=== PATIENT | female | born 1985 | race Caucasian/White ===

== ENCOUNTER 2019-09-19 01:27 | Inpatient (IN) ==
[~2019-09-19] VITALS: Ht 162.6 cm; Wt 76.0 kg
[2019-09-19] VITALS (39 sets, daily range): BP systolic 95–134; BP diastolic 53–80
[2019-09-19] MEDS ORDERED: PRENTAB9 PO (01:39)
[2019-09-19] MEDS ORDERED: LEVO25TA5 PO (01:41)
[2019-09-19] MEDS ORDERED: LEVO200T4 PO (01:41)
[2019-09-19] MEDS ORDERED: CETI10CA2 PO (01:41)
[2019-09-19] MEDS ORDERED: LR 1,000 ML IV SCH (02:13)
[2019-09-19] MEDS ORDERED: LACTATED RINGER'S 1000 ML IV STA (02:13)
[2019-09-19 02:27] LABS: HEMATOCRIT 39.6 % (36.0-47.0); HEMOGLOBIN 13.6 g/dl (12.0-15.5); MEAN CORPUSCULAR HEMOGLOBIN 31.7 pg (27.0-33.0); MEAN CORPUSCULAR HGB CONC 34.3 g/dl (32.0-36.5); MEAN CORPUSCULAR VOLUME 92.3 fl (80.0-96.0); PLATELET COUNT, AUTOMATED 164 10^3/uL (150-450); RED BLOOD COUNT 4.29 10^6/uL (4.00-5.40); WHITE BLOOD COUNT 11.6 10^3/uL (4.0-10.0)
--- NOTE | 2019-09-19 02:32 | HPEPDOC ---
Obstetrical History & Physical General Date of Admission Sep 19, 2019 at 01:59 History of Present Illness Ksenia is a 34yo with SIUP at 38w2d by lmp c/w 9wk u/s presenting with CC of regular ctx and LOF after midnight. She states she has ctx in her back that are very strong and give her the sensation that she needs to defecate, they are about 5 min apart. She noticed big gush of fluid that soaked her panties and shorts, went to the toilet and had continued leaking of fluid. Good movement. No vaginal bleeding. No fevers/chills/nausea/vomiting/CP/SOB. Chief Complaint: Contractions, term, LOF, term Information Provided By: Patient Care Care: Good Care Dating Final EDC: Oct 01, 2019 Final EDC by: LMP, 1st trimester (US) Antepartum Course Diagnos(e)s PUPPS Height (inches): 64 Pre- weight (lbs.): 130 Admission Weight (lbs.): 159 Change in Weight (lbs.): 29 Past Medical History Past Obstetrical History : Past Obstetrical History: Primgravida (history of one prior sab 2004 with D&C) [employer] History: Spontaneous , Abnormal Pap (History of LEEP x2) Past Medical History Medical History Hypothyroidism taking synthroid 200mcg qd, seasonal allergies taking zyrtec Surgical History: Dilatation and Curettage, Tonsilectomy, [place] teeth Family History Significant Family History: No pertinent family hx Social History Marital Status: Family situation: Spouse/partner deployed (Spouse in [place], on his way home) Psychosocial History: No pertinent psych hx * Smoker: non-smoker Alcohol: Denies Drugs: denies Imunizations Tdap status: current Influenza Status: current Allergies Coded Allergies: cefaclor (Verified Allergy, Unknown, 09/19/19) Medications Scheduled Levothyroxine Sodium (Levothyroxine Sodium) 25 Mcg Tablet, 25 MCG PO DAILY Levothyroxine Sodium (Levothyroxine Sodium) 200 Mcg Tablet, 200 MCG PO DAILY No.137/Iron/Folic Acd ( Vitamin Tablet) 1 Each Tablet, 1 TAB PO DAILY Miscellaneous Medications Cetirizine HCl (ZyrTEC) 10 Mg Capsule, 10 MG PO Physical Examination Physical Examination GENERAL: Alert and oriented times three. ABDOMEN: Gravid and non-tender to touch. FETUS: Is vertex (VTX) by sterile vaginal examination (SVE) per RN EXTREMITIES: No edema of BLE Grossly ruptured with light meconium stained fluid, nitrazine positive Laboratory Data 24H LABS Laboratory Tests 2 09/19/19 02:05: Serology Scanned Report Hepatitis B Testing Pertinent Laboratoy Data Blood Type: A+ RBC Antibody Screen: Negative HIV: Negative Hepatitis B: Negative Hepatitis C: Unknown Rapid Plasma Reagin: Nonreactive Rubella: Immune Varicella: Immune Chlamydia/Gonorrhea: Negative Group B Streptococcus: Negative Quad Screen Test: Negative ([id number]) Cystic Fibrosis: Negative Glucose Tolerance Test: 96 Anatomy Ultrasound Ultrasound Date: May 27, 2019 Placenta Location: Anterior Normal Anatomy: Yes Placenta Previa: No Steroid Therapy Steroid Therapy: No Vaginal Examination Dilation: 3 cm Effacement: 100% Station: -2 Cervical Consistency: Soft Cervical Position: Middle Presentation: Cephalic presentation Assessment Heart Rate (FHR): 140 Variability: Moderate Accelerations: Positive Decelerations: None Tocometer Contractions: Yes Frequency: irregular, every 3-7 min. Duration: greater than 60 seconds Strength: palpated as moderate Assessment/Plan Assessment Ksenia is a 34yo with SIUP at 38w2d by lmp c/w 9wk u/s with SROM, having light meconium stained fluid around midnight, SCE 3/100/-2, ctx q5min. Vitals wnl. Cat I FHRT. Benign exam. Cephalic on exam per RN. Nitrazine positi ve. PMhx and course significant for: Hypothyroidism taking synthroid 200mcg qd, seasonal allergies taking zyrtec Plan Admit and orient. 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 Diet: clear liquids Group B Streptococcus (GBS) negative Labs and intravenous (IV) per unit protocol. Lactated Ringers (LR): Bolus 1000 mL, then at 125 mL/hr. Anticipate normal spontaneous delivery () Candidate for epidural as desired Safe to proceed MD Theron Hatfield Katrina D MD Sep 19, 2019 02:32
[2019-09-19] MEDS ORDERED: OXYTOCIN DRIP 30 UNITS in IV 1 EA IV SCH ×2 (02:45→11:27)
[2019-09-19] MEDS ORDERED: FENTANYL 2MCG/ML ROPIVACAINE 0.2% IN 0.9% NACL 100ML IVBAG As Ordered ONE (03:15)
--- NOTE | 2019-09-19 06:59 | IPNPDOC ---
Text Note Date of Service The patient was seen on 09/19/19. NOTE Intrapartum Note Pt comfortable with epidural now. Pitocin at 8mu. Vitals wnl, afebrile Cat I-II FHRT with bl 140, min to mod rose, +accels, no decels [place]: ctx q2-4min SCE: 6/100/-2, bloody show noted Will continue to titrate pitocin per protocol Closely monitor Plan to recheck in 2hr or earlier as indicated Safe to proceed Dr. Yolanda Crump MD VS,Soham, I+O VS, Soham, I+O Laboratory Tests 09/19/19 02:18 Vital Signs Date Time Temp Pulse Resp B/P (MAP) Pulse Ox O2 Delivery O2 Flow Rate FiO2 09/19/19 06:18 77 114/65 (81) 09/19/19 05:49 98.2 17 Yolanda Crump MD Sep 19, 2019 06:59
--- NOTE | 2019-09-19 09:21 | IPNPDOC ---
Text Note Date of Service The patient was seen on 09/19/19. NOTE Patient becoming more uncomfortable with ctxs. VS WNL with BP 130s/80s GEN: mildly uncomfortable appearing ABD: nontender, gravid SVE: 5/70/0, AROM clear LE: SCDS in place, nontender FHT: Cat 1, 130s, reactive, ctx q3-4min A/P: Fetus reassuring. Will reduce pitocin due to AROM accordingly. Patient desiring epidural for pain. Expect /. VS,Fishbone, I+O VS, Fishbone, I+O Laboratory Tests 09/19/19 02:18 Vital Signs Date Time Temp Pulse Resp B/P (MAP) Pulse Ox O2 Delivery O2 Flow Rate FiO2 09/19/19 06:18 77 114/65 (81) 09/19/19 05:49 98.2 17 I&O- Last 24 Hours up to 6 AM 09/19/19 06:00 Intake Total 1000 ml Balance 1000 ml Ayla Eugene MD Sep 19, 2019 09:21
--- NOTE | 2019-09-19 09:26 | IPNPDOC ---
Text Note Date of Service The patient was seen on 09/19/19. NOTE Patient comfortable with epidural. VS WNL GEN: NAD ABD: nontender, gravid SVE: Deferred LE: SCDS in place, nontender FHT: Cat 1, 130s, reactive, early decels and mild variables, ctx q4min A/P: Fetus reassuring with early decels likely from head descent. Will continue current pitocin. Expect . VS,Fishbone, I+O VS, Fishbone, I+O Laboratory Tests 09/19/19 02:18 Vital Signs Date Time Temp Pulse Resp B/P (MAP) Pulse Ox O2 Delivery O2 Flow Rate FiO2 09/19/19 06:18 77 114/65 (81) 09/19/19 05:49 98.2 17 I&O- Last 24 Hours up to 6 AM 09/19/19 06:00 Intake Total 1000 ml Balance 1000 ml Ayla Eugene MD Sep 19, 2019 09:25
[2019-09-19 11:21] LABS: CORD GAS ABE V -4.7; CORD GAS HCO3 V 25.1 MEQ/L; CORD GAS O2 SAT V 24.2 %; CORD GAS PH V 7.191 UNITS; CORD GAS PO2 V 16.7 mmHg; CORD GAS SBC V 18.8 MEQ/L; CORD GAS TCO2 V 27.1 MEQ/L
[2019-09-19 11:24] LABS: CORD GAS ABE A -6.7; CORD GAS HCO3 A 24.2 MEQ/L; CORD GAS O2 SAT A 19.5 %; CORD GAS PCO2 A 73.2 mmHg; CORD GAS PH A 7.137 UNITS; CORD GAS PO2 A 15.7 mmHg; CORD GAS SBC A 17.3 MEQ/L; CORD GAS TCO2 A 26.4 MEQ/L
[2019-09-19] MEDS ORDERED: ANUSOL HC CREAM 30GM TOP PRN (11:30)
[2019-09-19] MEDS ORDERED: ONDANSETRON 4MG/2ML VIAL (J2405) IV PRN (11:30)
[2019-09-19] MEDS ORDERED: RHOGAM 300 MCG (1500 IU) INJ (J2790) IM SCH (11:30)
[2019-09-19] MEDS ORDERED: diphenhydrAMINE 25 MG CAP PO PRN (11:30)
[2019-09-19] MEDS ORDERED: METHYLERGONOVINE MALEATE 0.2 MG TAB PO PRN (11:30)
[2019-09-19] MEDS ORDERED: DIBUCAINE 1% OINTMENT 30GM TOP PRN (11:30)
[2019-09-19] MEDS ORDERED: MOM 30ML SUSPENSION UDC PO PRN (11:30)
[2019-09-19] MEDS ORDERED: MEASLES,MUMPS,RUBELLA VACCINE INJ (MMR-II) (90707) SC SCH (11:30)
--- NOTE | 2019-09-19 11:54 | DNPDOC ---
[facility] Delivery Note Delivery Note DATE OF DELIVERY: 19 September 2019 PREDELIVERY DIAGNOSIS: 38w2d gestation and labor/SROM POST DELIVERY DIAGNOSIS: Delivered. PROCEDURE: vacuum assisted vaginal delivery TEST DESIGN ENGINEER: Dr. Yolanda Crump MD ANESTHESIA: epidural ESTIMATED BLOOD LOSS: 200 mL. FINDINGS: 6 pound 4 ounce (2830g) male , Score 8/9, nuchal cord times 1. DELIVERY SUMMARY: Ksenia is a 34yo [id number] s/p uncomplicated VAVD at 1103 on 09/19/2019 after presenting in active labor with SROM at 38w2d. She was 3cm on presentation, received epidural, progressed with pitocin augmentation to C/C/0, at which point she began pushing. There were some deep prolonged FHR decels when fetus was at +2 station, so I made the decision for outlet vacuum assisted delivery and counseled the patient briefly on the risks/benefits/alternatives. She was amenable with proceeding. Kiwi vacuum placed midline between the anterior and posterior fontanelles of the head. With six sets of push-pulls and NO pop offs, infant's head delivered OA. Vacuum suction released. Infant's head restituted RANDY. Tight nuchal cord noted but not reducible so delivered through. Left compound hand noted. Left anterior shoulder delivered followed by posterior shoulder and corpus. Nuchal cord reduced. Infant was vigorous with spontaneous cry, placed on maternal abdomen. 's nose and mouth were suctioned with bulb suction. Cord was clamped x2 and cut by patient after approximately 2 minutes. Cord gases obtained (pHa 7.137, BE -6.7 and pHv 7.191, BE -4.7). Apgars 8/9. With traction on the umbilical cord and uterine massage, placenta delivered spontaneously and intact with 3 vessel centrally inserted cord. Bimanual uterine massage was performed and fundus was then firm at u-2cm. IV pitocin given per protocol. Inspection of perineum and vagina revealed a 2mll repaired in routine fashion with 3-0 vicryl with excellent reapproximation and total hemostasis noted. All counts correct x2. Mom and infant were doing well when I left the room. MD Theron Hatfield Katrina D MD Sep 19, 2019 11:39
[2019-09-19] MEDS: IBUPROFEN 800 MG TAB PO PRN (15:20)
[2019-09-19] MEDS: DOCUSATE SODIUM 100 MG CAP PO SCH (20:12)
[2019-09-20] MEDS: IBUPROFEN 600 MG TAB PO PRN (02:38)
[2019-09-20 06:00] VITALS: BP 110/71
--- NOTE | 2019-09-20 07:23 | IPNPDOC ---
Progress Note Date of Service: Sep 20, 2019 Day#: 1 Progress Note SUBJECT: Patient is a 34-year-old 2 now Para 1 status post uncomplicated VAVD delivery with post 2nd degree laceration and repair, doing well day # 1. She has been ambulating, voiding spontaneously without issue and tolerating regular diet. Breast feeding without issue. Reports lochia is like a normal period. Patient is ambulating well. Reports some cramping with . Denies any pain. OBJECTIVE: VITAL SIGNS: Within normal limits, afebrile. GENERAL: No acute distress HEENT: MMM BREAST: Nontender, no erythema CARDIOVASCULAR EXAMINATION: RRR RESPIRATORY EXAMINATION: Bilaterally clear ABDOMINAL EXAMINATION: Soft, appropriate tenderness, nondistended, fundus -2 PERINEUM: Intact, minimal lochia EXTREMITIES: no edema, nontender ASSESSMENT: Patient is a 34-year-old 2 now Para 1 status post uncomplicated VAVD delivery with post 2nd degree laceration and repair, doing well day # 1. Vitals within normal limits, afebrile, hemodynamically stable with no evidence of infection. PLAN: 1. Continue care. 2. Tylenol and Motrin for pain. 3. Encourage breast feeding and ambulation. VS, I&O, 24H, Fishbone Vital Signs/I&O Vital Signs Date Time Temp Pulse Resp B/P (MAP) Pulse Ox O2 Delivery O2 Flow Rate FiO2 09/19/19 06:18 77 114/65 (81) 09/19/19 05:49 98.2 17 I&O- Last 24 Hours up to 6 AM 09/19/19 06:00 Intake Total 1000 ml Balance 1000 ml Laboratory Data 24H LABS Laboratory Tests 2 09/19/19 02:05: Serology Scanned Report Hepatitis B Testing 09/19/19 02:18: Nucleated Red Blood Cells % (auto) 0.0, Syphilis Serology NONREACTIVE 09/19/19 11:14: Cord Arterial Blood pH 7.137, Cord Arterial Blood PCO2 73.2, Cord Arterial Blood PO2 15.7, Cord Arterial Blood HCO3 24.2, Cord Arterial Blood Total CO2 26.4, Cord Arterial Blood Base Excess -6.7, Cord Arterial Base Excess (Standard 17.3, Cord Arterial Bld Oxygen Saturation 19.5, Cord Venous Blood pH 7.191, Cord Venous Blood PCO2 67.0, Cord Venous Blood PO2 16.7, Cord Venous Blood HCO3 25.1, Cord Venous Blood Total CO2 27.1, Cord Venous Base Excess (Actual) -4.7, Cord Venous Base Excess (Standard) 18.8, Cord Venous Blood Oxygen Saturation 24.2 CBC/BMP Laboratory Tests 09/19/19 02:18 Ayla Eugene MD Sep 19, 2019 12:06
[2019-09-20] MEDS: PRENATAL VITAMINS CHEWABLE TABLET PO SCH (08:03)
[2019-09-20] MEDS: DOCUSATE SODIUM 100 MG CAP PO SCH ×2 (08:03→21:09)
[2019-09-20] MEDS: IBUPROFEN 800 MG TAB PO PRN ×2 (12:30→21:09)
[2019-09-20] MEDS: ACETAMINOPHEN 500 MG TAB PO PRN (17:48)
[2019-09-20 18:05] VITALS: BP 118/73
[2019-09-21] MEDS: IBUPROFEN 600 MG TAB PO PRN (05:09)
[2019-09-21 05:52] VITALS: BP 124/78
[2019-09-21] MEDS ORDERED: DOCU100C16 PO (07:48)
[2019-09-21] MEDS ORDERED: DIBU10OI TOP (07:48)
[2019-09-21] MEDS ORDERED: PROC1CRE5 TOP (07:48)
[2019-09-21] MEDS: ACETAMINOPHEN 500 MG TAB PO PRN (09:06)
[2019-09-21] MEDS: DOCUSATE SODIUM 100 MG CAP PO SCH (09:06)
[2019-09-21] MEDS: PRENATAL VITAMINS CHEWABLE TABLET PO SCH (09:06)
--- NOTE | 2019-09-21 13:38 | DSES ---
DATE OF ADMISSION: 09/19/2019 DATE OF DISCHARGE: 09/21/2019 This lady is a 34-year-old 2 now para 1 admitted with contractions with spontaneous rupture of membranes at 38 and 2 weeks of gestation. She had a spontaneous vaginal delivery of a live male 6 pounds, 4 ounces. scores of eight and nine at 1 and 5 minutes respectively. She is hypothyroid taking her medication. On discharge her blood pressure 124/78, respirations 18, pulse 77, temperature is 98.5. Her admitting hemoglobin was 13.6, hematocrit 39.6 and platelets were 164. Arterial blood gases was 7.13, base excess -6.7, venous pH 7.19, base excess -4.7. We discussed phlebitis, cystitis, mastitis, endometritis and cellulitis, diet, exercise, pain management, perineal, breast and wound care. The rest of the examination was unremarkable. Normocephalic, atraumatic. Neck full range of motion. Pupils equal and reactive to light. Distal pulses are symmetric. No evidence of deep vein thrombosis (DVT), pulmonary embolism (PE) or superficial phlebitis. Chest is clear bilaterally to bases. No wheezes or rhonchi. No CVA tenderness. Abdomen soft. Uterus 2 below. Lochia is moderate. Four quadrant bowel sounds are noted. No rashes, lesions or pruritus, no arthralgia, myalgia. No complaint of joint pain. No complaint of cough, wheeze, shortness of breath or dyspnea on exertion. No nausea, vomiting, diarrhea or constipation. No urgency or frequency. In summary, we have a term gestation, delivered a live male infant. Plan is to see [facility] 6 weeks. Meds are dispensed at [place].
== END 2019-09-21 11:25 | disposition home or self-care (01) | DRG 807 ==
LOC: M LDO 01:27 → M LDI 01:59 → M OBS 14:30
PROVIDERS: ADMIT Obstetrics & Gynecology; ATTEND Obstetrics & Gynecology
PROC: 10D07Z6 Extraction of Products of Conception, Vacuum, Via Natural or Artificial Opening (ICD-10-PCS; principal; 2019-09-19)
PROC: 0KQM0ZZ Repair Perineum Muscle, Open Approach (ICD-10-PCS; 2019-09-19)
DX: O99.284 Endocrine, nutritional and metabolic diseases complicating childbirth (principal); Z37.0 Single live birth; Z3A.38 38 weeks gestation of pregnancy; E03.9 Hypothyroidism, unspecified; O32.6XX0 Maternal care for compound presentation, not applicable or unspecified; O69.1XX0 Labor and delivery complicated by cord around neck, with compression, not applicable or unspecified; O70.1 Second degree perineal laceration during delivery